=== PATIENT | male | born 1940 | race Caucasian/White ===

== ENCOUNTER 2021-03-27 17:22 | Inpatient (IN) ==
[2021-03-27 18:41] LABS: ABS Lymphocytes 1.4 10^3/ul (1.0-4.8); ABS Monocytes 1.2 10^3/ul (0-0.8); ABS Neutrophils 13.2 10^3/ul (1.5-7.7); Hematocrit 40 % (42-52); Hemoglobin 13.1 g/dL (14.0-18.0); Lymphocyte % 8.9 %; Mean Corpuscular HGB Conc 33 g/dL (31-36); Mean Corpuscular Hemoglobin 29 pg (27-31); Mean Corpuscular Volume 89 fL (80-94); Mean Platelet Volume 9.7 fL (7.4-10.4); Platelet Count 281 10^3/uL (150-450); Red Blood Count 4.55 10^6 /uL (4.18-5.48); Red Cell Distribution Width 14 % (10-15); White Blood Count 15.9 10^3/uL (3.5-10.8)
[2021-03-27 18:57] LABS: INR 1.27 (0.86-1.15)
[2021-03-27 19:04] LABS: ALT 82 U/L (7-52); AST 220 U/L (13-39); Albumin 3.8 g/dL (3.2-5.2); Albumin/Globulin Ratio 1.1 (1-3); Alkaline Phosphatase 58 U/L (35-149); Anion Gap 13 mmol/L (2-11); Blood Urea Nitrogen 31 mg/dL (6-24); CO2 Carbon Dioxide 24 mmol/L (22-32); Calcium 9.1 mg/dL (8.6-10.3); Chloride 101 mmol/L (101-111); EGFR African American 42.9 (>60); EGFR Non-African American 35.5 (>60); Globulin 3.6 g/dL (2-4); Glucose 147 mg/dL (70-100); Potassium 3.6 mmol/L (3.5-5.0); Sodium 138 mmol/L (135-145); Total Protein 7.4 g/dL (6.4-8.9)
[2021-03-27 19:21] LABS: Creatine Kinase 10724 U/L (10-223)
[2021-03-27] MEDS ORDERED: Lactated Ringers 1000 ml BAG 1,000 ML IV ONE (19:48)
[2021-03-27] MEDS ORDERED: Ondansetron 4 mg VIAL 2 MG/ML 2 ml VIAL IV PRN (21:48)
[2021-03-27] MEDS ORDERED: Lactated Ringers 1000 ml BAG 1,000 ML IV SCH (22:00)
[2021-03-27] MEDS: Lactated Ringers 1000 ml BAG 1,000 ML IV SCH (22:58)
[2021-03-27] MEDS: cefTRIAXone 1 gm/50 mL NS BAG 1 GM/50 ML BAG IVPB SCH (23:06)
[2021-03-27 23:23] LABS: Anion Gap 11 mmol/L (2-11); Blood Urea Nitrogen 33 mg/dL (6-24); CO2 Carbon Dioxide 28 mmol/L (22-32); Calcium 8.8 mg/dL (8.6-10.3); Chloride 100 mmol/L (101-111); EGFR African American 44.3 (>60); EGFR Non-African American 36.6 (>60); Glucose 137 mg/dL (70-100); Potassium 3.3 mmol/L (3.5-5.0); Sodium 139 mmol/L (135-145)
[2021-03-27 23:32] LABS: Troponin I 0.08 ng/mL (<0.03)
[2021-03-27 23:39] LABS: Creatine Kinase 8548 U/L (10-223)
[2021-03-28] MEDS: KCL 10 MEQ/50 ML IVPREMIX 10 MEQ/50 ML BAG IV SCH ×3 (00:50→03:24)
[2021-03-28] MEDS: Lactated Ringers 1000 ml BAG 1,000 ML IV SCH ×2 (05:14→20:23)
[2021-03-28 05:26] LABS: ABS Lymphocytes 1.5 10^3/ul (1.0-4.8); ABS Monocytes 0.9 10^3/ul (0-0.8); ABS Neutrophils 10.5 10^3/ul (1.5-7.7); Hematocrit 39 % (42-52); Hemoglobin 12.8 g/dL (14.0-18.0); Lymphocyte % 11.9 %; Mean Corpuscular HGB Conc 33 g/dL (31-36); Mean Corpuscular Hemoglobin 29 pg (27-31); Mean Corpuscular Volume 88 fL (80-94); Mean Platelet Volume 9.9 fL (7.4-10.4); Platelet Count 266 10^3/uL (150-450); Red Blood Count 4.43 10^6 /uL (4.18-5.48); Red Cell Distribution Width 14 % (10-15)
[2021-03-28 05:45] LABS: ALT 74 U/L (7-52); AST 166 U/L (13-39); Albumin 3.6 g/dL (3.2-5.2); Alkaline Phosphatase 54 U/L (35-149); Anion Gap 9 mmol/L (2-11); Blood Urea Nitrogen 36 mg/dL (6-24); CO2 Carbon Dioxide 28 mmol/L (22-32); Calcium 8.8 mg/dL (8.6-10.3); Chloride 101 mmol/L (101-111); EGFR African American 46.4 (>60); EGFR Non-African American 38.4 (>60); Globulin 3.5 g/dL (2-4); Glucose 146 mg/dL (70-100); Indirect Bilirubin 0.5 mg/dL (0.3-1.0); Potassium 3.7 mmol/L (3.5-5.0); Sodium 138 mmol/L (135-145); Total Protein 7.1 g/dL (6.4-8.9)
[2021-03-28 06:04] LABS: Creatine Kinase 6651 U/L (10-223)
[2021-03-28 08:32] LABS: Urine Appearance Cloudy; Urine Bilirubin Negative (Negative); Urine Blood 3+ (Negative); Urine Color Yellow; Urine Glucose Negative (Negative); Urine Ketones 1+ (Negative); Urine Nitrite Negative (Negative); Urine Protein 2+(100 mg/dL) (Negative); Urine Specific Gravity 1.026 (1.002-1.030); Urine Urobilinogen Negative (Negative)
[2021-03-28 08:46] LABS: Urine Creatinine Concentration 242.21 mg/dL
[2021-03-28 08:55] LABS: Urine Bacteria Absent (Absent); Urine Red Blood Cell 3+(>10/hpf) (Absent); Urine Squamous Epithelial Cell Present (Absent); Urine White Blood Cell 3+(>20/hpf) (Absent)
[2021-03-28 14:18] LABS: Calcium 8.5 mg/dL (8.6-10.3)
[2021-03-28 14:23] LABS: EGFR African American 66.5 (>60); EGFR Non-African American 54.9 (>60)
[2021-03-28 15:25] LABS: Troponin I 0.07 ng/mL (<0.03)
[2021-03-28 20:49] LABS: Potassium 4.1 mmol/L (3.5-5.0)
[2021-03-28] MEDS: cefTRIAXone 1 gm/50 mL NS BAG 1 GM/50 ML BAG IVPB SCH (21:17)
[2021-03-29] MEDS: Lactated Ringers 1000 ml BAG 1,000 ML IV SCH ×2 (02:35→08:46)
[2021-03-29 07:16] LABS: ABS Lymphocytes 1.5 10^3/ul (1.0-4.8); ABS Monocytes 0.7 10^3/ul (0-0.8); ABS Neutrophils 7.1 10^3/ul (1.5-7.7); Eosinophil % 0.2 %; Hematocrit 35 % (42-52); Hemoglobin 11.6 g/dL (14.0-18.0); Lymphocyte % 16.1 %; Mean Corpuscular HGB Conc 33 g/dL (31-36); Mean Corpuscular Hemoglobin 30 pg (27-31); Mean Corpuscular Volume 89 fL (80-94); Mean Platelet Volume 10.2 fL (7.4-10.4); Platelet Count 215 10^3/uL (150-450); Red Blood Count 3.88 10^6 /uL (4.18-5.48); Red Cell Distribution Width 14 % (10-15); White Blood Count 9.4 10^3/uL (3.5-10.8)
[2021-03-29 07:28] LABS: Albumin 3.1 g/dL (3.2-5.2); Albumin/Globulin Ratio 1.1 (1-3); Calcium 8.1 mg/dL (8.6-10.3); EGFR Non-African American 67.8 (>60); Globulin 2.8 g/dL (2-4); Magnesium 1.9 mg/dL (1.9-2.7); Potassium 3.4 mmol/L (3.5-5.0); Total Bilirubin 0.5 mg/dL (0.2-1.0); Total Protein 5.9 g/dL (6.4-8.9)
[2021-03-29] MEDS ORDERED: Potassium Chlor 20 meq TAB.ER PO ONE ×2 (08:34→11:00)
[2021-03-29] MEDS ORDERED: Lactated Ringers 1000 ml BAG 1,000 ML IV SCH (09:54)
[2021-03-29] MEDS ORDERED: Perflutren Lipid Microsphere 3 ML VIAL ONE (10:46)
[2021-03-29] MEDS: cefTRIAXone 1 gm/50 mL NS BAG 1 GM/50 ML BAG IVPB SCH (21:12)
[2021-03-30 07:12] LABS: Albumin 3.6 g/dL (3.2-5.2); Albumin/Globulin Ratio 1.1 (1-3); C Reactive Protein 48.54 mg/L (<8.01); Calcium 8.7 mg/dL (8.6-10.3); EGFR African American 88.8 (>60); EGFR Non-African American 73.4 (>60); Globulin 3.2 g/dL (2-4); Potassium 4.2 mmol/L (3.5-5.0); Total Bilirubin 0.5 mg/dL (0.2-1.0); Total Protein 6.8 g/dL (6.4-8.9)
[2021-03-30 07:32] LABS: ABS Eosinophils 0.1 10^3/ul (0-0.6); ABS Lymphocytes 2.6 10^3/ul (1.0-4.8); ABS Monocytes 0.8 10^3/ul (0-0.8); ABS Neutrophils 6.4 10^3/ul (1.5-7.7); Eosinophil % 1.1 %; Hematocrit 40 % (42-52); Lymphocyte % 26.6 %; Mean Corpuscular HGB Conc 33 g/dL (31-36); Mean Corpuscular Hemoglobin 30 pg (27-31); Mean Corpuscular Volume 90 fL (80-94); Mean Platelet Volume 10.4 fL (7.4-10.4); Nucleated Red Blood Cells % 0.1; Platelet Count 248 10^3/uL (150-450); Red Cell Distribution Width 14 % (10-15)
[2021-03-30] MEDS: cefTRIAXone 1 gm/50 mL NS BAG 1 GM/50 ML BAG IVPB SCH (21:28)
[2021-03-31 09:26] LABS: Calcium 8.7 mg/dL (8.6-10.3); Magnesium 1.8 mg/dL (1.9-2.7); Potassium 3.7 mmol/L (3.5-5.0)
[2021-03-31] MEDS ORDERED: Magnesium Sulfate 2 gm BAG 2 GM/50 ML BAG IVPB ONE (11:23)
[2021-03-31] MEDS ORDERED: Potassium Chlor 10 meq TAB PO ONE (11:38)
[2021-03-31] MEDS ORDERED: Furosemide 40 mg/4 ml IV VIAL IV SLOW PU ONE ×2 (12:51→16:30)
[2021-03-31] MEDS ORDERED: COVID-19 VACCINE, AD26(JANSSEN)/PF 0.5 ML IM ONE (15:00)
[2021-03-31] MEDS: cefTRIAXone 1 gm/50 mL NS BAG 1 GM/50 ML BAG IVPB SCH (20:47)
[2021-04-01] MEDS ORDERED: Furosemide 40 mg/4 ml IV VIAL IV SLOW PU ONE (09:00)
[2021-04-02 08:34] LABS: Calcium 8.6 mg/dL (8.6-10.3); EGFR African American 84.8 (>60); EGFR Non-African American 70.1 (>60); Potassium 4.1 mmol/L (3.5-5.0)
[2021-04-02] MEDS ORDERED: Furosemide 40 mg/4 ml IV VIAL IV ONE ×2 (08:59→17:39)
[2021-04-03 08:17] LABS: Calcium 8.3 mg/dL (8.6-10.3); EGFR African American 75.4 (>60); EGFR Non-African American 62.3 (>60); Magnesium 1.9 mg/dL (1.9-2.7); Potassium 3.8 mmol/L (3.5-5.0)
[2021-04-04 06:44] LABS: Calcium 8.5 mg/dL (8.6-10.3); EGFR African American 76.9 (>60); EGFR Non-African American 63.6 (>60); Potassium 3.8 mmol/L (3.5-5.0)
[2021-04-04 08:20] VITALS: BP 125/76
== END 2021-04-04 10:59 | DRG 871 ==
LOC: ED 17:22 → EDHOLD 21:39 → SUATTDRO 21:39 → EDHOLD 03-28 16:57 → MED 03-28 17:23 → SSU 04-03 03:10
PROVIDERS: ADMIT Internal Medicine; ATTEND Hospitalist

== ENCOUNTER 2022-03-09 08:48 | Inpatient (IN) ==
[2022-03-10 06:33] LABS: INR 1.19 (0.89-1.11)
[2022-03-10] MEDS ORDERED: Lisinopril/HCTZ 20/25 TAB (NF) PO SCH (09:00)
[2022-03-16] MEDS ORDERED: Polyethylene Glycol 3350 17 GM PACKET PO PRN (11:14)
[2022-03-16] MEDS ORDERED: Magnesium Hydroxide LIQ 30 ML UDC PO PRN (11:14)
[2022-03-16] MEDS ORDERED: Senna TAB 8.6 mg TAB PO PRN (11:14)
[2022-03-18 07:32] VITALS: BP 131/66
== END 2022-03-18 14:23 | DRG 177 ==
LOC: SUATTDRO 10:19 → MED 10:19
PROVIDERS: ADMIT Hospitalist; ATTEND Internal Medicine

== ENCOUNTER 2023-08-16 09:56 | Inpatient (IN) ==
[2023-08-16 11:37] LABS: Hematocrit 37.4 % (38-53); Hemoglobin 12.4 g/dL (13.2-16.3); Mean Corpuscular Hemoglobin 27.5 pg (27-33); Mean Corpuscular Hgb Conc 33.3 g/dL (31-36); Mean Corpuscular Volume 82.5 fL (80-97); Mean Platelet Volume 9.5 fL (7.5-11.2); Platelet Count 399 10^3/uL (150-450); Red Blood Count 4.53 10^6/uL (4.06-5.63); Red Cell Distribution Width 14.3 % (12-17); White Blood Count 20.2 10^3/uL (3.6-10.2)
[2023-08-16 12:28] LABS: Albumin 3.1 g/dL (3.2-5.2); Albumin/Globulin Ratio 0.8 (1-3); C Reactive Protein 437.31 mg/L (<8.01); Calcium 8.3 mg/dL (8.6-10.3); Creatinine, Serum 1.98 mg/dL (0.67-1.17); Globulin 4.1 g/dL (2-4); Potassium 2.7 mmol/L (3.5-5.0); Total Bilirubin 0.7 mg/dL (0.2-1.0); Total Protein 7.2 g/dL (6.4-8.9); eGFR CKD-EPI 32.7 (>60)
[2023-08-16] MEDS ORDERED: cefTRIAXone 1 gm/50 mL D5W 1 GM/50 ML BAG IV ONE (12:35)
[2023-08-16] MEDS ORDERED: Azithromycin 500 mg/250 ml NS 500 MG/250 ML BAG IVPB ONE (12:35)
[2023-08-16] MEDS: KCL 20 MEQ/100 ML IVPREMIX 20 MEQ/100 ML BAG IV SCH ×2 (12:36→15:30)
[2023-08-16 12:43] LABS: Erythrocyte Sed Rate 82 mm/Hr (0-19)
[2023-08-16 12:59] LABS: High Sensitivity Troponin 1 Hr 117 pg/mL (<20)
[2023-08-16] MEDS ORDERED: Lactated Ringers 1000 ml BAG 1,000 ML IV SCH (13:00)
[2023-08-16 13:15] LABS: ABS Lymphocytes 0.8 10^3/uL (1.0-4.8); ABS Monocytes 0.4 10^3/uL (0.0-1.1); ABS Nucleated RBC 0.01 10^3/ul; Eosinophil % 0.1 %; Lymphocyte % 3.7 %
[2023-08-16 15:12] LABS: Urine Appearance Cloudy; Urine Bilirubin Negative (Negative); Urine Blood 2+ (Negative); Urine Color Amber; Urine Glucose Negative (Negative); Urine Ketones Negative (Negative); Urine Nitrite Negative (Negative); Urine Protein 2+(100 mg/dL) (Negative); Urine Specific Gravity 1.027 (1.002-1.030); Urine Urobilinogen Negative (Negative)
[2023-08-16] MEDS ORDERED: Senna TAB 8.6 mg TAB PO PRN (15:35)
[2023-08-16] MEDS ORDERED: Polyethylene Glycol 3350 17 GM PACKET PO PRN (15:35)
[2023-08-16 15:48] LABS: Urine Bacteria Absent (Absent); Urine Granular Casts Present (Absent); Urine Red Blood Cell 3+(>10/hpf) (Absent); Urine White Blood Cell 3+(>20/hpf) (Absent)
[2023-08-16] MEDS ORDERED: ZOSYN 3.375 GM x ONE DOSE over 30 miuntes IV (16:00)
[2023-08-16] MEDS ORDERED: Albuterol/Ipratropium NEB.SOL (2.5/0.5 MG) 3 ML NEB.SOLN INH PRN (16:12)
[2023-08-16] MEDS: Albuterol HFA INHALER 8 gm MDI INH SCH (17:45)
[2023-08-17] MEDS: Albuterol HFA INHALER 8 gm MDI INH SCH ×3 (00:58→16:00)
[2023-08-17 05:58] LABS: Hemoglobin 11.3 g/dL (13.2-16.3); Mean Corpuscular Hemoglobin 27.1 pg (27-33); Mean Corpuscular Hgb Conc 33.2 g/dL (31-36); Mean Corpuscular Volume 81.7 fL (80-97); Mean Platelet Volume 9.2 fL (7.5-11.2); Platelet Count 363 10^3/uL (150-450); Red Blood Count 4.16 10^6/uL (4.06-5.63); Red Cell Distribution Width 14.3 % (12-17); White Blood Count 24.3 10^3/uL (3.6-10.2)
[2023-08-17 06:08] LABS: ABS Lymphocytes 0.9 10^3/uL (1.0-4.8); ABS Monocytes 0.3 10^3/uL (0.0-1.1); ABS Neutrophils 23.1 10^3/uL (1.5-7.6); ABS Nucleated RBC 0.01 10^3/ul; Lymphocyte % 3.9 %
[2023-08-17 06:33] LABS: Albumin 2.5 g/dL (3.2-5.2); Albumin/Globulin Ratio 0.6 (1-3); Calcium 7.8 mg/dL (8.6-10.3); Creatinine, Serum 1.68 mg/dL (0.67-1.17); Globulin 4.1 g/dL (2-4); Magnesium 2.2 mg/dL (1.9-2.7); Phosphorus 3.5 mg/dL (2.5-5.0); Potassium 2.7 mmol/L (3.5-5.0); Total Bilirubin 0.5 mg/dL (0.2-1.0); Total Protein 6.6 g/dL (6.4-8.9); eGFR CKD-EPI 39.8 (>60)
[2023-08-17] MEDS ORDERED: Potassium Chlor 20 meq TAB.ER PO ONE (07:33)
[2023-08-17] MEDS ORDERED: KCL 20 MEQ/100 ML IVPREMIX 20 MEQ/100 ML BAG IV ONE ×2 (07:33→09:58)
[2023-08-17] MEDS: cefTRIAXone 1 gm/50 mL D5W 1 GM/50 ML BAG IV SCH (08:09)
[2023-08-17] MEDS ORDERED: Zosyn per Pharmacy NOTE FOLLOW UP SCH (09:00)
[2023-08-17] MEDS ORDERED: Lactated Ringers 1000 ml BAG 1,000 ML IV SCH (11:00)
[2023-08-17] MEDS: Azithromycin 500 mg/250 ml NS 500 MG/250 ML BAG IVPB SCH (15:39)
[2023-08-18] MEDS: Albuterol HFA INHALER 8 gm MDI INH SCH ×3 (01:26→17:29)
[2023-08-18] MEDS ORDERED: Potassium Chlor 20 meq TAB.ER PO ONE (06:19)
[2023-08-18 06:24] LABS: Hematocrit 34.8 % (38-53); Hemoglobin 11.3 g/dL (13.2-16.3); Mean Corpuscular Hemoglobin 27.1 pg (27-33); Mean Corpuscular Hgb Conc 32.5 g/dL (31-36); Mean Corpuscular Volume 83.3 fL (80-97); Mean Platelet Volume 9.2 fL (7.5-11.2); Platelet Count 272 10^3/uL (150-450); Red Blood Count 4.17 10^6/uL (4.06-5.63); Red Cell Distribution Width 14.5 % (12-17); White Blood Count 23.6 10^3/uL (3.6-10.2)
[2023-08-18 06:52] LABS: Potassium 3.6 mmol/L (3.5-5.0)
[2023-08-18 06:53] LABS: Calcium 7.8 mg/dL (8.6-10.3); Creatinine, Serum 1.16 mg/dL (0.67-1.17); eGFR CKD-EPI 62.1 (>60)
[2023-08-18 09:07] LABS: C Reactive Protein 295.17 mg/L (<8.01)
[2023-08-18] MEDS: cefTRIAXone 1 gm/50 mL D5W 1 GM/50 ML BAG IV SCH (09:19)
[2023-08-18] MEDS ORDERED: cefTRIAXone 1 gm/50 mL D5W 1 GM/50 ML BAG IV ONE ×3 (13:15→14:36)
[2023-08-18] MEDS: Azithromycin 500 mg/250 ml NS 500 MG/250 ML BAG IVPB SCH (15:49)
[2023-08-19] MEDS: Albuterol HFA INHALER 8 gm MDI INH SCH ×3 (00:16→15:48)
[2023-08-19 06:28] LABS: ABS Lymphocytes 1.1 10^3/uL (1.0-4.8); ABS Monocytes 0.7 10^3/uL (0.0-1.1); ABS Neutrophils 19.5 10^3/uL (1.5-7.6); ABS Nucleated RBC 0.01 10^3/ul; Hematocrit 32.8 % (38-53); Hemoglobin 10.9 g/dL (13.2-16.3); Lymphocyte % 5.2 %; Mean Corpuscular Hemoglobin 27.3 pg (27-33); Mean Corpuscular Hgb Conc 33.1 g/dL (31-36); Mean Corpuscular Volume 82.6 fL (80-97); Mean Platelet Volume 8.4 fL (7.5-11.2); Platelet Count 325 10^3/uL (150-450); Red Blood Count 3.98 10^6/uL (4.06-5.63); Red Cell Distribution Width 14.4 % (12-17); White Blood Count 21.3 10^3/uL (3.6-10.2)
[2023-08-19 06:46] LABS: C Reactive Protein 157.89 mg/L (<8.01); Calcium 7.7 mg/dL (8.6-10.3); Creatinine, Serum 0.95 mg/dL (0.67-1.17); Magnesium 2.3 mg/dL (1.9-2.7); Potassium 3.1 mmol/L (3.5-5.0); eGFR CKD-EPI 78.9 (>60)
[2023-08-19] MEDS ORDERED: Potassium Chlor 20 meq TAB.ER PO ONE (07:17)
[2023-08-19] MEDS: cefTRIAXone 2 gm/50 mL D5W 2 GM/50 ML BAG IV SCH (09:11)
[2023-08-19] MEDS ORDERED: Influenza vaccine *QUAD* *2023-24* 0.5 ML SYRINGE IM ONE (18:00)
[2023-08-20] MEDS: Albuterol HFA INHALER 8 gm MDI INH SCH ×2 (01:00→08:19)
[2023-08-20 08:04] VITALS: BP 139/77
[2023-08-20] MEDS: cefTRIAXone 2 gm/50 mL D5W 2 GM/50 ML BAG IV SCH (08:06)
[2023-08-20 09:00] LABS: Hematocrit 35.4 % (38-53); Hemoglobin 11.6 g/dL (13.2-16.3); Mean Corpuscular Hemoglobin 27.2 pg (27-33); Mean Corpuscular Hgb Conc 32.8 g/dL (31-36); Mean Corpuscular Volume 83.1 fL (80-97); Mean Platelet Volume 8.1 fL (7.5-11.2); Platelet Count 287 10^3/uL (150-450); Red Blood Count 4.26 10^6/uL (4.06-5.63); Red Cell Distribution Width 14.9 % (12-17); White Blood Count 17.1 10^3/uL (3.6-10.2)
[2023-08-20 09:30] LABS: Calcium 7.9 mg/dL (8.6-10.3); Creatinine, Serum 0.78 mg/dL (0.67-1.17); Magnesium 2.2 mg/dL (1.9-2.7); eGFR CKD-EPI 87.9 (>60)
== END 2023-08-20 09:06 | disposition home or self-care (01) | DRG 871 ==
LOC: ED 09:56 → SUATTDRO 14:07 → EDHOLD 14:07 → MEDTELE 16:12 → MED 08-17 16:16
PROVIDERS: ADMIT Internal Medicine; ATTEND Student in an Organized Health Care Education/Training Program

== ENCOUNTER 2023-08-20 07:26 | Inpatient (IN) ==
[2023-08-20] MEDS ORDERED: Senna TAB 8.6 mg TAB PO PRN (12:33)
[2023-08-20] MEDS ORDERED: Magnesium Hydroxide LIQ 30 ML UDC PO PRN (12:33)
[2023-08-20] MEDS: Albuterol HFA INHALER 8 gm MDI INH SCH (21:17)
[2023-08-21] MEDS: Albuterol HFA INHALER 8 gm MDI INH SCH ×2 (00:05→11:07)
[2023-08-21] MEDS ORDERED: COVID VAC 23-24(12+)(Moderna) SYR 0.5 ML IM ONE (09:00)
[2023-08-21] MEDS: cefTRIAXone 2 gm/50 mL D5W 2 GM/50 ML BAG IV SCH (10:50)
[2023-08-21] MEDS ORDERED: Albuterol HFA INHALER 8 gm MDI INH PRN (14:10)
[2023-08-21] MEDS: Benzocaine/Menthol LOZ PO PRN (22:07)
[2023-08-22 09:07] LABS: ABS Basophils 0.1 10^3/uL (0.0-0.1); ABS Lymphocytes 2.4 10^3/uL (1.0-4.8); ABS Monocytes 0.7 10^3/uL (0.0-1.1); Eosinophil % 0.1 %; Hematocrit 38.3 % (38-53); Hemoglobin 12.4 g/dL (13.2-16.3); Lymphocyte % 11.4 %; Mean Corpuscular Hemoglobin 26.9 pg (27-33); Mean Corpuscular Hgb Conc 32.3 g/dL (31-36); Mean Corpuscular Volume 83.2 fL (80-97); Mean Platelet Volume 8.3 fL (7.5-11.2); Platelet Count 411 10^3/uL (150-450); Red Blood Count 4.61 10^6/uL (4.06-5.63); Red Cell Distribution Width 14.9 % (12-17); White Blood Count 21.2 10^3/uL (3.6-10.2)
[2023-08-22 09:22] LABS: Albumin 2.8 g/dL (3.2-5.2); Albumin/Globulin Ratio 0.6 (1-3); Calcium 8.1 mg/dL (8.6-10.3); Creatinine, Serum 0.69 mg/dL (0.67-1.17); Globulin 4.4 g/dL (2-4); Potassium 3.7 mmol/L (3.5-5.0); Total Bilirubin 0.4 mg/dL (0.2-1.0); Total Protein 7.2 g/dL (6.4-8.9); eGFR CKD-EPI 91.3 (>60)
[2023-08-22] MEDS: SPIRIVA Respimat (tiotropium) 2.5 mcg/inh Inhaler INH SCH (10:13)
[2023-08-22] MEDS: cefTRIAXone 2 gm/50 mL D5W 2 GM/50 ML BAG IV SCH (10:20)
[2023-08-22 18:08] LABS: C Reactive Protein 35.54 mg/L (<8.01)
[2023-08-23] MEDS: cefTRIAXone 2 gm/50 mL D5W 2 GM/50 ML BAG IV SCH (10:24)
[2023-08-23] MEDS: SPIRIVA Respimat (tiotropium) 2.5 mcg/inh Inhaler INH SCH (10:25)
[2023-08-24] MEDS: SPIRIVA Respimat (tiotropium) 2.5 mcg/inh Inhaler INH SCH (09:20)
[2023-08-24] MEDS: Potassium Chlor 20 meq TAB.ER PO SCH (09:20)
[2023-08-24] MEDS: cefTRIAXone 2 gm/50 mL D5W 2 GM/50 ML BAG IV SCH (09:31)
[2023-08-25] MEDS: Potassium Chlor 20 meq TAB.ER PO SCH (08:25)
[2023-08-25] MEDS: cefTRIAXone 2 gm/50 mL D5W 2 GM/50 ML BAG IV SCH (08:31)
[2023-08-25] MEDS: SPIRIVA Respimat (tiotropium) 2.5 mcg/inh Inhaler INH SCH (08:37)
[2023-08-25 15:20] LABS: ABS Basophils 0.1 10^3/uL (0.0-0.1); ABS Eosinophils 0.1 10^3/uL (0.0-0.5); ABS Lymphocytes 1.9 10^3/uL (1.0-4.8); ABS Monocytes 0.8 10^3/uL (0.0-1.1); ABS Nucleated RBC 0.01 10^3/ul; Eosinophil % 0.7 %; Hematocrit 37.2 % (38-53); Lymphocyte % 12.8 %; Mean Corpuscular Hemoglobin 27.2 pg (27-33); Mean Corpuscular Hgb Conc 32.3 g/dL (31-36); Mean Platelet Volume 8.9 fL (7.5-11.2); Nucleated Red Blood Cells % 0.1 %/100WBC (0.0-0.8); Platelet Count 397 10^3/uL (150-450); Red Blood Count 4.43 10^6/uL (4.06-5.63); Red Cell Distribution Width 14.5 % (12-17); White Blood Count 14.9 10^3/uL (3.6-10.2)
[2023-08-25 15:39] LABS: C Reactive Protein 54.24 mg/L (<8.01); Calcium 8.4 mg/dL (8.6-10.3); Creatinine, Serum 0.87 mg/dL (0.67-1.17); Potassium 4.3 mmol/L (3.5-5.0); eGFR CKD-EPI 85.1 (>60)
[2023-08-26] MEDS: cefTRIAXone 2 gm/50 mL D5W 2 GM/50 ML BAG IV SCH (09:00)
[2023-08-26] MEDS: SPIRIVA Respimat (tiotropium) 2.5 mcg/inh Inhaler INH SCH (09:08)
[2023-08-26] MEDS ORDERED: Nystatin SUSPENSION 100,000 UNITS/ML UDC PO SCH (13:00)
[2023-08-26] MEDS: Nystatin SUSPENSION 100,000 UNITS/ML UDC PO SCH ×3 (13:38→21:56)
[2023-08-26] MEDS: PAIN RELIEVING RUB (MENTHOL/SALICYLATE) 1 APPLIC TUBE TOPICAL PRN (17:50)
[2023-08-27] MEDS: PAIN RELIEVING RUB (MENTHOL/SALICYLATE) 1 APPLIC TUBE TOPICAL PRN ×2 (04:55→13:57)
[2023-08-27] MEDS: Nystatin SUSPENSION 100,000 UNITS/ML UDC PO SCH ×4 (09:28→20:59)
[2023-08-27] MEDS: cefTRIAXone 2 gm/50 mL D5W 2 GM/50 ML BAG IV SCH (10:15)
[2023-08-27] MEDS: SPIRIVA Respimat (tiotropium) 2.5 mcg/inh Inhaler INH SCH (10:25)
[2023-08-27] MEDS: Benzocaine/Menthol LOZ PO PRN (14:00)
[2023-08-28] MEDS: cefTRIAXone 2 gm/50 mL D5W 2 GM/50 ML BAG IV SCH (08:46)
[2023-08-28] MEDS: Nystatin SUSPENSION 100,000 UNITS/ML UDC PO SCH ×4 (08:52→21:33)
[2023-08-28] MEDS: SPIRIVA Respimat (tiotropium) 2.5 mcg/inh Inhaler INH SCH (08:57)
[2023-08-28] MEDS: PAIN RELIEVING RUB (MENTHOL/SALICYLATE) 1 APPLIC TUBE TOPICAL PRN (10:32)
[2023-08-29 07:33] LABS: ABS Basophils 0.1 10^3/uL (0.0-0.1); ABS Eosinophils 0.1 10^3/uL (0.0-0.5); ABS Lymphocytes 1.5 10^3/uL (1.0-4.8); ABS Monocytes 0.7 10^3/uL (0.0-1.1); ABS Neutrophils 8.2 10^3/uL (1.5-7.6); Hemoglobin 11.5 g/dL (13.2-16.3); Lymphocyte % 13.9 %; Mean Corpuscular Hemoglobin 27.4 pg (27-33); Mean Corpuscular Volume 83.2 fL (80-97); Mean Platelet Volume 8.8 fL (7.5-11.2); Platelet Count 427 10^3/uL (150-450); Red Blood Count 4.21 10^6/uL (4.06-5.63); Red Cell Distribution Width 14.5 % (12-17); White Blood Count 10.6 10^3/uL (3.6-10.2)
[2023-08-29 07:37] LABS: Albumin/Globulin Ratio 0.7 (1-3); C Reactive Protein 46.9 mg/L (<8.01); Calcium 8.5 mg/dL (8.6-10.3); Creatinine, Serum 1.22 mg/dL (0.67-1.17); Globulin 4.2 g/dL (2-4); Potassium 3.6 mmol/L (3.5-5.0); Total Bilirubin 0.3 mg/dL (0.2-1.0); Total Protein 7.2 g/dL (6.4-8.9); eGFR CKD-EPI 58.5 (>60)
[2023-08-29] MEDS: Nystatin SUSPENSION 100,000 UNITS/ML UDC PO SCH ×4 (08:30→21:49)
[2023-08-29] MEDS: cefTRIAXone 2 gm/50 mL D5W 2 GM/50 ML BAG IV SCH (08:34)
[2023-08-29] MEDS: SPIRIVA Respimat (tiotropium) 2.5 mcg/inh Inhaler INH SCH (10:38)
[2023-08-30] MEDS: cefTRIAXone 2 gm/50 mL D5W 2 GM/50 ML BAG IV SCH (08:53)
[2023-08-30] MEDS: Nystatin SUSPENSION 100,000 UNITS/ML UDC PO SCH ×4 (12:27→21:53)
[2023-08-30] MEDS: SPIRIVA Respimat (tiotropium) 2.5 mcg/inh Inhaler INH SCH (12:28)
[2023-08-31] MEDS: SPIRIVA Respimat (tiotropium) 2.5 mcg/inh Inhaler INH SCH (09:22)
[2023-08-31] MEDS: Nystatin SUSPENSION 100,000 UNITS/ML UDC PO SCH ×4 (09:28→20:13)
[2023-09-01 07:23] LABS: Calcium 8.2 mg/dL (8.6-10.3); Creatinine, Serum 1.08 mg/dL (0.67-1.17); Potassium 3.5 mmol/L (3.5-5.0); eGFR CKD-EPI 67.7 (>60)
[2023-09-01] MEDS: SPIRIVA Respimat (tiotropium) 2.5 mcg/inh Inhaler INH SCH (09:20)
[2023-09-01] MEDS: Nystatin SUSPENSION 100,000 UNITS/ML UDC PO SCH ×4 (09:20→19:36)
[2023-09-01 19:27] LABS: C Reactive Protein 69.73 mg/L (<8.01)
[2023-09-02] MEDS: SPIRIVA Respimat (tiotropium) 2.5 mcg/inh Inhaler INH SCH (09:08)
[2023-09-02] MEDS: Nystatin SUSPENSION 100,000 UNITS/ML UDC PO SCH (09:08)
[2023-09-02] MEDS: PAIN RELIEVING RUB (MENTHOL/SALICYLATE) 1 APPLIC TUBE TOPICAL PRN (09:08)
[2023-09-03] MEDS: SPIRIVA Respimat (tiotropium) 2.5 mcg/inh Inhaler INH SCH (09:44)
[2023-09-03] MEDS: PAIN RELIEVING RUB (MENTHOL/SALICYLATE) 1 APPLIC TUBE TOPICAL PRN (12:38)
[2023-09-04 06:53] LABS: Creatinine, Serum 1.04 mg/dL (0.67-1.17); Potassium 3.4 mmol/L (3.5-5.0); eGFR CKD-EPI 70.8 (>60)
[2023-09-04] MEDS: SPIRIVA Respimat (tiotropium) 2.5 mcg/inh Inhaler INH SCH (07:31)
[2023-09-04] MEDS: PAIN RELIEVING RUB (MENTHOL/SALICYLATE) 1 APPLIC TUBE TOPICAL PRN (13:02)
[2023-09-04] MEDS: Potassium Chlor 20 meq TAB.ER PO SCH (21:19)
[2023-09-05 07:02] LABS: ABS Eosinophils 0.2 10^3/uL (0.0-0.5); ABS Lymphocytes 1.6 10^3/uL (1.0-4.8); ABS Monocytes 0.4 10^3/uL (0.0-1.1); ABS Neutrophils 2.9 10^3/uL (1.5-7.6); Eosinophil % 3.9 %; Hematocrit 27.5 % (38-53); Hemoglobin 9.4 g/dL (13.2-16.3); Mean Corpuscular Hemoglobin 27.8 pg (27-33); Mean Corpuscular Volume 81.7 fL (80-97); Mean Platelet Volume 8.2 fL (7.5-11.2); Platelet Count 310 10^3/uL (150-450); Red Blood Count 3.37 10^6/uL (4.06-5.63); Red Cell Distribution Width 14.9 % (12-17); White Blood Count 5.2 10^3/uL (3.6-10.2)
[2023-09-05] MEDS: Potassium Chlor 20 meq TAB.ER PO SCH ×2 (07:36→20:00)
[2023-09-05 07:38] LABS: Albumin 2.8 g/dL (3.2-5.2); Albumin/Globulin Ratio 0.7 (1-3); C Reactive Protein 18.37 mg/L (<8.01); Calcium 8.1 mg/dL (8.6-10.3); Creatinine, Serum 0.95 mg/dL (0.67-1.17); Globulin 3.9 g/dL (2-4); Potassium 3.5 mmol/L (3.5-5.0); Total Bilirubin 0.3 mg/dL (0.2-1.0); Total Protein 6.7 g/dL (6.4-8.9); eGFR CKD-EPI 78.9 (>60)
[2023-09-05] MEDS: SPIRIVA Respimat (tiotropium) 2.5 mcg/inh Inhaler INH SCH (07:41)
[2023-09-05 11:38] LABS: Ferritin 105.5 ng/mL (24-336)
[2023-09-05] MEDS: PAIN RELIEVING RUB (MENTHOL/SALICYLATE) 1 APPLIC TUBE TOPICAL PRN (11:40)
[2023-09-05 12:55] LABS: Folate 6.05 ng/mL (5.90-24.80)
[2023-09-06 08:28] LABS: ABS Basophils 0.1 10^3/uL (0.0-0.1); ABS Eosinophils 0.2 10^3/uL (0.0-0.5); ABS Lymphocytes 1.8 10^3/uL (1.0-4.8); ABS Monocytes 0.5 10^3/uL (0.0-1.1); ABS Neutrophils 2.9 10^3/uL (1.5-7.6); Eosinophil % 4.4 %; Hematocrit 29.2 % (38-53); Lymphocyte % 32.7 %; Mean Corpuscular Hemoglobin 27.9 pg (27-33); Mean Corpuscular Hgb Conc 34.1 g/dL (31-36); Mean Corpuscular Volume 81.8 fL (80-97); Mean Platelet Volume 8.2 fL (7.5-11.2); Nucleated Red Blood Cells % 0.1 %/100WBC (0.0-0.8); Platelet Count 311 10^3/uL (150-450); Red Blood Count 3.57 10^6/uL (4.06-5.63); Red Cell Distribution Width 15.1 % (12-17); White Blood Count 5.5 10^3/uL (3.6-10.2)
[2023-09-06] MEDS: Potassium Chlor 20 meq TAB.ER PO SCH ×2 (08:55→20:16)
[2023-09-06] MEDS: SPIRIVA Respimat (tiotropium) 2.5 mcg/inh Inhaler INH SCH (08:57)
[2023-09-07 07:50] LABS: ABS Eosinophils 0.2 10^3/uL (0.0-0.5); ABS Lymphocytes 1.7 10^3/uL (1.0-4.8); ABS Monocytes 0.5 10^3/uL (0.0-1.1); ABS Neutrophils 2.6 10^3/uL (1.5-7.6); Eosinophil % 3.7 %; Hematocrit 27.3 % (38-53); Hemoglobin 9.2 g/dL (13.2-16.3); Lymphocyte % 33.2 %; Mean Corpuscular Hemoglobin 27.5 pg (27-33); Mean Corpuscular Hgb Conc 33.8 g/dL (31-36); Mean Corpuscular Volume 81.4 fL (80-97); Mean Platelet Volume 8.1 fL (7.5-11.2); Platelet Count 254 10^3/uL (150-450); Red Blood Count 3.35 10^6/uL (4.06-5.63); Red Cell Distribution Width 15.1 % (12-17); White Blood Count 5.1 10^3/uL (3.6-10.2)
[2023-09-07] MEDS: SPIRIVA Respimat (tiotropium) 2.5 mcg/inh Inhaler INH SCH (08:14)
[2023-09-07] MEDS: PAIN RELIEVING RUB (MENTHOL/SALICYLATE) 1 APPLIC TUBE TOPICAL PRN (08:19)
[2023-09-08 06:37] LABS: ABS Eosinophils 0.2 10^3/uL (0.0-0.5); ABS Lymphocytes 1.6 10^3/uL (1.0-4.8); ABS Monocytes 0.5 10^3/uL (0.0-1.1); ABS Neutrophils 2.3 10^3/uL (1.5-7.6); ABS Nucleated RBC 0.01 10^3/ul; Eosinophil % 4.5 %; Hematocrit 25.9 % (38-53); Hemoglobin 8.9 g/dL (13.2-16.3); Lymphocyte % 34.7 %; Mean Corpuscular Hgb Conc 34.3 g/dL (31-36); Mean Corpuscular Volume 81.5 fL (80-97); Mean Platelet Volume 7.9 fL (7.5-11.2); Nucleated Red Blood Cells % 0.2 %/100WBC (0.0-0.8); Platelet Count 220 10^3/uL (150-450); Red Blood Count 3.19 10^6/uL (4.06-5.63); Red Cell Distribution Width 14.9 % (12-17); White Blood Count 4.7 10^3/uL (3.6-10.2)
[2023-09-08] MEDS: SPIRIVA Respimat (tiotropium) 2.5 mcg/inh Inhaler INH SCH (09:36)
[2023-09-09] MEDS: Potassium Chlor 20 meq TAB.ER PO SCH (07:20)
[2023-09-09] MEDS: SPIRIVA Respimat (tiotropium) 2.5 mcg/inh Inhaler INH SCH (07:23)
[2023-09-10] MEDS: SPIRIVA Respimat (tiotropium) 2.5 mcg/inh Inhaler INH SCH (07:24)
[2023-09-10] MEDS: Potassium Chlor 20 meq TAB.ER PO SCH (07:26)
[2023-09-10 08:01] LABS: ABS Eosinophils 0.2 10^3/uL (0.0-0.5); ABS Lymphocytes 1.9 10^3/uL (1.0-4.8); ABS Monocytes 0.5 10^3/uL (0.0-1.1); ABS Neutrophils 2.5 10^3/uL (1.5-7.6); ABS Nucleated RBC 0.01 10^3/ul; Eosinophil % 4.7 %; Hematocrit 28.3 % (38-53); Hemoglobin 9.7 g/dL (13.2-16.3); Lymphocyte % 35.9 %; Mean Corpuscular Hemoglobin 28.1 pg (27-33); Mean Corpuscular Hgb Conc 34.1 g/dL (31-36); Mean Corpuscular Volume 82.2 fL (80-97); Mean Platelet Volume 8.1 fL (7.5-11.2); Nucleated Red Blood Cells % 0.1 %/100WBC (0.0-0.8); Platelet Count 249 10^3/uL (150-450); Red Blood Count 3.44 10^6/uL (4.06-5.63); Red Cell Distribution Width 15.3 % (12-17); White Blood Count 5.2 10^3/uL (3.6-10.2)
[2023-09-11] MEDS: Potassium Chlor 20 meq TAB.ER PO SCH (08:58)
[2023-09-11] MEDS: SPIRIVA Respimat (tiotropium) 2.5 mcg/inh Inhaler INH SCH (08:59)
[2023-09-11 12:39] LABS: Rapid COVID-19 Molecular Undetected (Undetected)
[2023-09-12 05:11] VITALS: BP 118/73
[2023-09-12 06:53] LABS: ABS Eosinophils 0.2 10^3/uL (0.0-0.5); ABS Lymphocytes 1.8 10^3/uL (1.0-4.8); ABS Monocytes 0.6 10^3/uL (0.0-1.1); ABS Neutrophils 3.1 10^3/uL (1.5-7.6); Eosinophil % 3.1 %; Hematocrit 25.1 % (38-53); Hemoglobin 8.5 g/dL (13.2-16.3); Lymphocyte % 32.2 %; Mean Corpuscular Hemoglobin 27.9 pg (27-33); Mean Corpuscular Hgb Conc 33.8 g/dL (31-36); Mean Corpuscular Volume 82.4 fL (80-97); Mean Platelet Volume 7.9 fL (7.5-11.2); Platelet Count 239 10^3/uL (150-450); Red Blood Count 3.05 10^6/uL (4.06-5.63); Red Cell Distribution Width 15.7 % (12-17); White Blood Count 5.7 10^3/uL (3.6-10.2)
[2023-09-12 07:10] LABS: Albumin 2.8 g/dL (3.2-5.2); Albumin/Globulin Ratio 0.8 (1-3); Creatinine, Serum 0.99 mg/dL (0.67-1.17); Globulin 3.3 g/dL (2-4); Total Bilirubin 0.3 mg/dL (0.2-1.0); Total Protein 6.1 g/dL (6.4-8.9); eGFR CKD-EPI 75.1 (>60)
[2023-09-12] MEDS: Potassium Chlor 20 meq TAB.ER PO SCH (08:33)
[2023-09-12] MEDS: SPIRIVA Respimat (tiotropium) 2.5 mcg/inh Inhaler INH SCH (08:35)
== END 2023-09-12 16:12 | DRG 193 ==
LOC: PMRU 09:46
PROVIDERS: ADMIT Physical Medicine & Rehabilitation; ATTEND Physical Medicine & Rehabilitation

== ENCOUNTER 2024-06-04 08:49 | Observation (INO) ==
[2024-06-04 10:59] LABS: Hematocrit 20.6 % (38-53); Hemoglobin 6.3 g/dL (13.2-16.3); Mean Corpuscular Hemoglobin 21.2 pg (27-33); Mean Corpuscular Hgb Conc 30.4 g/dL (31-36); Mean Corpuscular Volume 69.5 fL (80-97); Mean Platelet Volume 8.6 fL (7.5-11.2); Platelet Count 324 10^3/uL (150-450); Red Blood Count 2.97 10^6/uL (4.06-5.63); Red Cell Distribution Width 16.6 % (12-17); White Blood Count 6.6 10^3/uL (3.6-10.2)
[2024-06-04 11:08] LABS: High Sens Troponin Baseline 15 pg/mL (<20)
[2024-06-04 11:24] LABS: ALT 10 U/L (7-52); AST 12 U/L (13-39); Albumin 3.8 g/dL (3.2-5.2); Albumin/Globulin Ratio 1.3 (1-3); Alkaline Phosphatase 80 U/L (35-149); Anion Gap 8 mmol/L (2-16); Blood Urea Nitrogen 23 mg/dL (6-24); C Reactive Protein 6.61 mg/L (<8.01); CO2 Carbon Dioxide 26 mmol/L (22-32); Calcium 9.4 mg/dL (8.6-10.3); Chloride 102 mmol/L (101-111); Creatinine, Serum 1.13 mg/dL (0.67-1.17); Globulin 2.9 g/dL (2-4); Glucose 116 mg/dL (70-100); Potassium 4.1 mmol/L (3.5-5.0); Sodium 136 mmol/L (135-145); Total Bilirubin 0.6 mg/dL (0.2-1.0); Total Protein 6.7 g/dL (6.4-8.9); eGFR CKD-EPI 64.1 (>60)
[2024-06-04 11:54] LABS: ABS Basophils 0.1 10^3/uL (0.0-0.1); ABS Eosinophils 0.1 10^3/uL (0.0-0.5); ABS Lymphocytes 1.9 10^3/uL (1.0-4.8); ABS Monocytes 0.6 10^3/uL (0.0-1.1); ABS Neutrophils 4.1 10^3/uL (1.5-7.6); ABS Nucleated RBC 0.01 10^3/ul; Eosinophil % 1.8 %; Lymphocyte % 27.9 %; Nucleated Red Blood Cells % 0.1 %/100WBC (0.0-0.8)
[2024-06-04] MEDS ORDERED: Albuterol HFA INHALER 8 gm MDI INH PRN (15:16)
[2024-06-04] MEDS: cefTRIAXone 1 gm/50 mL D5W 1 GM/50 ML BAG IV ONE (15:37)
[2024-06-04] MEDS: Pantoprazole VIAL 40 MG VIAL IV ONE (15:38)
[2024-06-04 16:18] LABS: % Iron Saturation 5 % (15-55); .Transferrin 280 mg/dL (203-362); Iron < 20 ug/dL (50-212); Total Iron Binding Capacity 392 mcg/dL (250-450); Unsaturated Iron Binding 372 ug/dL
[2024-06-04] MEDS ORDERED: Midazolam 5 mg/5 ml VIAL 1 mg/ml 5 ml VIAL (5 mg) ONE (17:18)
[2024-06-04] MEDS ORDERED: fentaNYL 100 mcg/2 ml 50 MCG/ML VIAL ONE (17:19)
[2024-06-04] MEDS: PEG 3000 GI LAVAGE 1 GALLON PO ONE ×2 (20:52→21:08)
[2024-06-04] MEDS ORDERED: PEG 3000 GI LAVAGE 1 GALLON PO ONE (21:00)
[2024-06-04] MEDS: Pantoprazole VIAL 40 MG VIAL IV SCH (21:13)
[2024-06-05] MEDS: PEG 3000 GI LAVAGE 1 GALLON PO ONE (00:11)
[2024-06-05] MEDS ORDERED: PEG 3000 GI LAVAGE 1 GALLON PO ONE (03:00)
[2024-06-05 07:01] LABS: ABS Eosinophils 0.2 10^3/uL (0.0-0.5); ABS Monocytes 0.4 10^3/uL (0.0-1.1); ABS Neutrophils 2.7 10^3/uL (1.5-7.6); Eosinophil % 3.6 %; Hematocrit 20.2 % (38-53); Hemoglobin 6.3 g/dL (13.2-16.3); Mean Corpuscular Hemoglobin 21.8 pg (27-33); Mean Corpuscular Hgb Conc 31.2 g/dL (31-36); Mean Platelet Volume 8.2 fL (7.5-11.2); Platelet Count 273 10^3/uL (150-450); Red Blood Count 2.89 10^6/uL (4.06-5.63); Red Cell Distribution Width 17.5 % (12-17); White Blood Count 4.2 10^3/uL (3.6-10.2)
[2024-06-05 07:25] LABS: Calcium 8.5 mg/dL (8.6-10.3); Creatinine, Serum 0.97 mg/dL (0.67-1.17); Potassium 4.1 mmol/L (3.5-5.0)
[2024-06-05 08:57] LABS: Ferritin 5.9 ng/mL (24-336)
[2024-06-05 09:02] LABS: Folate 10.59 ng/mL (5.90-24.80)
[2024-06-05] MEDS ORDERED: Midazolam 5 mg/5 ml VIAL 1 mg/ml 5 ml VIAL (5 mg) ONE (12:15)
[2024-06-05] MEDS ORDERED: fentaNYL 100 mcg/2 ml 50 MCG/ML VIAL ONE (12:15)
[2024-06-05] MEDS: cefTRIAXone 1 gm/50 mL D5W 1 GM/50 ML BAG IV SCH (15:02)
[2024-06-05] MEDS: Ferric Gluconate IV 125 MG in NS 0.9% 100 ml BAG 100 ML IVPB ONE (15:08)
[2024-06-05 15:23] LABS: ABS Eosinophils 0.1 10^3/uL (0.0-0.5); ABS Lymphocytes 1.2 10^3/uL (1.0-4.8); ABS Monocytes 0.4 10^3/uL (0.0-1.1); ABS Neutrophils 4.8 10^3/uL (1.5-7.6); ABS Nucleated RBC 0.01 10^3/ul; Eosinophil % 1.6 %; Hematocrit 26.9 % (38-53); Hemoglobin 8.2 g/dL (13.2-16.3); Lymphocyte % 18.3 %; Mean Corpuscular Hemoglobin 21.9 pg (27-33); Mean Corpuscular Hgb Conc 30.5 g/dL (31-36); Mean Corpuscular Volume 71.8 fL (80-97); Mean Platelet Volume 8.5 fL (7.5-11.2); Nucleated Red Blood Cells % 0.1 %/100WBC (0.0-0.8); Platelet Count 339 10^3/uL (150-450); Red Blood Count 3.74 10^6/uL (4.06-5.63); Red Cell Distribution Width 17.7 % (12-17); White Blood Count 6.6 10^3/uL (3.6-10.2)
[2024-06-06 07:18] LABS: ABS Eosinophils 0.2 10^3/uL (0.0-0.5); ABS Lymphocytes 1.6 10^3/uL (1.0-4.8); ABS Monocytes 0.6 10^3/uL (0.0-1.1); ABS Neutrophils 4.3 10^3/uL (1.5-7.6); Hematocrit 26.6 % (38-53); Hemoglobin 8.3 g/dL (13.2-16.3); Lymphocyte % 23.3 %; Mean Corpuscular Hemoglobin 22.7 pg (27-33); Mean Corpuscular Hgb Conc 31.3 g/dL (31-36); Mean Corpuscular Volume 72.5 fL (80-97); Mean Platelet Volume 8.8 fL (7.5-11.2); Platelet Count 314 10^3/uL (150-450); Red Blood Count 3.67 10^6/uL (4.06-5.63); Red Cell Distribution Width 18.1 % (12-17); White Blood Count 6.7 10^3/uL (3.6-10.2)
[2024-06-06 08:35] VITALS: BP 134/78
== END 2024-06-06 15:30 | disposition home or self-care (01) ==
LOC: ED 08:49 → EDHOLD 08:49 → SUATTDRO 13:28 → AA 16:40 → MEDTELE 23:16
PROVIDERS: ADMIT Internal Medicine; ATTEND Family Medicine